=== PATIENT | male | born 1975 | race Caucasian/White ===

== ENCOUNTER → 2017-05-22 | Outpatient (REF) | payer OTHER, SELFPAY ==
[2017-05-22 11:10] LABS: MEAN CORPUSCULAR HGB CONC 34.7 g/dl (32.0-36.5); MEAN CORPUSCULAR VOLUME 86.4 fl (80.0-96.0); RED CELL DISTRIBUTION WIDTH 12.6 % (11.5-14.5); WHITE BLOOD COUNT 5.6 K/mm3 (4.0-10.0)
[2017-05-22 11:35] LABS: ALBUMIN 3.9 GM/DL (3.2-5.2); ALBUMIN/GLOBULIN RATIO 1.15 (1.00-1.93); ALKALINE PHOSPHATASE 78 U/L (45-117); ALT/SGPT 61 U/L (12-78); ANION GAP 8 MEQ/L (8-16); AST/SGOT 28 U/L (15-37); BILIRUBIN,TOTAL 0.6 MG/DL (0.2-1.0); BLOOD UREA NITROGEN 17 MG/DL (7-18); CALCIUM LEVEL 9.1 MG/DL (8.5-10.1); CARBON DIOXIDE LEVEL 28 MEQ/L (21-32); CHLORIDE LEVEL 106 MEQ/L (98-107); CREATININE FOR GFR 1.11 MG/DL (0.70-1.30); GLOMERULAR FILTRATION RATE > 60.0 (>60); GLUCOSE, FASTING 119 MG/DL (70-105); POTASSIUM SERUM 4.1 MEQ/L (3.5-5.1); SODIUM LEVEL 142 MEQ/L (136-145); TOTAL PROTEIN 7.3 GM/DL (6.4-8.2)
[2017-05-22 11:37] LABS: LITHIUM LEVEL 0.33 MEQ/L (0.60-1.20)
== END ==
LOC: M LAB REF 10:58
PROVIDERS: ATTEND Psychiatry & Neurology Psychiatry
DX: Z51.81 Encounter for therapeutic drug level monitoring (principal); Z79.899 Other long term (current) drug therapy

== ENCOUNTER 2020-05-05 20:27 | Inpatient (IN) | payer OTHER ==
[2020-05-05] MEDS ORDERED: KETOROLAC 30 MG/ML 1ML VIAL As Ordered ONE (21:59)
[2020-05-05] MEDS ORDERED: CLINDAMYCIN 600 MG/50 ML PREMIX BAG As Ordered ONE (21:59)
[2020-05-05] MEDS ORDERED: ISOVUE-370 76% 100ML VIAL As Ordered ONE (22:50)
[2020-05-06] MEDS ORDERED: ZOSYN 3.375GM VIAL (J2543) ONE ×3 (02:14→22:15)
[2020-05-06] MEDS ORDERED: ZOSYN 3.375GM VIAL (J2543) As Ordered ONE ×3 (02:14→22:15)
[2020-05-06] MEDS ORDERED: NORCO, ANEXSIA 5/325MG TABLET (HYDROcodone/ACETAMINOPHEN) As Ordered ONE (05:15)
[2020-05-06] MEDS ORDERED: NORCO, ANEXSIA 5/325MG TABLET (HYDROcodone/ACETAMINOPHEN) ONE (05:15)
[2020-05-06] MEDS ORDERED: KETOROLAC 30 MG/ML 1ML VIAL ONE ×3 (05:15→22:15)
[2020-05-06] MEDS ORDERED: KETOROLAC 30 MG/ML 1ML VIAL As Ordered ONE ×3 (07:47→22:15)
[2020-05-06] MEDS ORDERED: VANCOMYCIN 1000MG/20ML VIAL As Ordered ONE ×2 (10:02→17:17)
[2020-05-06] MEDS ORDERED: ACETAMINOPHEN TAB 650MG DOSE (2X325MG) ONE ×2 (10:02→17:17)
[2020-05-06] MEDS ORDERED: VANCOMYCIN 1000MG/20ML VIAL ONE ×2 (10:02→17:17)
[2020-05-06] MEDS ORDERED: ACETAMINOPHEN TAB 650MG DOSE (2X325MG) As Ordered ONE ×2 (10:17→17:17)
[2020-05-06] MEDS ORDERED: VANCOMYCIN 500MG/10ML VIAL As Ordered ONE (12:40)
[2020-05-06] MEDS ORDERED: VANCOMYCIN 500MG/10ML VIAL ONE (14:57)
[2020-05-07] MEDS ORDERED: VANCOMYCIN 1000MG/20ML VIAL As Ordered ONE ×3 (01:19→18:09)
[2020-05-07] MEDS ORDERED: KETOROLAC 30 MG/ML 1ML VIAL As Ordered ONE ×4 (01:19→21:00)
[2020-05-07] MEDS ORDERED: ACETAMINOPHEN 325 MG TAB As Ordered ONE ×2 (01:20→04:18)
[2020-05-07] MEDS ORDERED: ZOSYN 3.375GM VIAL (J2543) As Ordered ONE ×4 (04:16→21:00)
[2020-05-07] MEDS ORDERED: ACETAMINOPHEN TAB 650MG DOSE (2X325MG) As Ordered ONE ×3 (10:03→23:03)
[2020-05-07] MEDS ORDERED: NORCO, ANEXSIA 5/325MG TABLET (HYDROcodone/ACETAMINOPHEN) As Ordered ONE ×2 (11:38→21:03)
[2020-05-07] MEDS ORDERED: CHLORHEXIDINE GLUCONATE 0.12 % 15ML UDC (PERIDEX ORAL RINSE) As Ordered ONE ×2 (17:03→21:06)
[2020-05-08] MEDS ORDERED: KETOROLAC 30 MG/ML 1ML VIAL As Ordered ONE ×4 (02:09→20:31)
[2020-05-08] MEDS ORDERED: VANCOMYCIN 1000MG/20ML VIAL As Ordered ONE ×3 (02:09→17:53)
[2020-05-08] MEDS ORDERED: ZOSYN 3.375GM VIAL (J2543) As Ordered ONE ×4 (03:43→20:25)
[2020-05-08] MEDS ORDERED: ACETAMINOPHEN TAB 650MG DOSE (2X325MG) As Ordered ONE ×4 (03:54→22:11)
[2020-05-08] MEDS ORDERED: CHLORHEXIDINE GLUCONATE 0.12 % 15ML UDC (PERIDEX ORAL RINSE) As Ordered ONE ×3 (08:14→20:28)
[2020-05-09] MEDS ORDERED: ZOSYN 3.375GM VIAL (J2543) As Ordered ONE ×4 (03:36→20:18)
[2020-05-09] MEDS ORDERED: KETOROLAC 30 MG/ML 1ML VIAL As Ordered ONE ×4 (03:37→20:17)
[2020-05-09] MEDS ORDERED: VANCOMYCIN 1000MG/20ML VIAL As Ordered ONE ×3 (03:37→18:32)
[2020-05-09] MEDS ORDERED: ACETAMINOPHEN TAB 650MG DOSE (2X325MG) As Ordered ONE ×4 (04:51→21:16)
[2020-05-09] MEDS ORDERED: CHLORHEXIDINE GLUCONATE 0.12 % 15ML UDC (PERIDEX ORAL RINSE) As Ordered ONE ×4 (08:30→20:20)
[2020-05-10] MEDS ORDERED: KETOROLAC 30 MG/ML 1ML VIAL As Ordered ONE ×3 (01:46→13:21)
[2020-05-10] MEDS ORDERED: VANCOMYCIN 1000MG/20ML VIAL As Ordered ONE ×2 (01:47→10:50)
[2020-05-10] MEDS ORDERED: ACETAMINOPHEN TAB 650MG DOSE (2X325MG) As Ordered ONE ×2 (01:47→10:47)
[2020-05-10] MEDS ORDERED: ZOSYN 3.375GM VIAL (J2543) As Ordered ONE ×2 (01:47→08:05)
== END 2020-05-10 15:55 | disposition home or self-care (01) | DRG 720 ==
LOC: M ED 20:27 → M PCU 05-06 01:19
PROVIDERS: ADMIT Internal Medicine; ATTEND Internal Medicine
DX: A41.9 Sepsis, unspecified organism (principal); L03.211 Cellulitis of face; F11.10 Opioid abuse, uncomplicated; F17.200 Nicotine dependence, unspecified, uncomplicated

== ENCOUNTER → 2020-12-27 | Outpatient (REF) | payer OTHER | LOC: M LAB REF 11:44 | PROVIDERS: ATTEND Surgery | DX: U07.1 COVID-19 (principal) ==

== ENCOUNTER 2021-08-05 16:35 | Emergency (ER) | payer OTHER ==
[~2021-08-05] VITALS: Ht 175.3 cm; Wt 75.0 kg
[2021-08-05 16:56] VITALS: BP 119/80
--- OUTSIDE RECORDS SUMMARY | 2021-08-05 17:14 | CCD ---
Author Author [facility] Organization [facility] Address Unknown Phone Unavailable Care Team Providers Care Coding Specialist Home Health Name Role Phone Austyn Prince NP Unavailable Unavailable Austyn Prince NP Unavailable Unavailable Austyn Prince NP Unavailable Unavailable TorMikina Unavailable Re-disclosure Warning The records that you are about to access may contain information from federally-assisted alcohol or drug abuse programs. If such information is present, then the following federally mandated warning applies: This information has been disclosed to you from records protected by federal confidentiality rules (42 CFR part 2). The federal rules prohibit you from making any further disclosure of this information unless further disclosure is expressly permitted by the written consent of the person to whom it pertains or as otherwise permitted by 42 CFR part 2. A general authorization for the release of medical or other information is NOT sufficient for this purpose. The Federal rules restrict any use of the information to criminally investigate or prosecute any alcohol or drug abuse patient.The records that you are about to access may contain highly sensitive health information, the redisclosure of which is protected by Article 27-F of the [facility] Public Health law. If you continue you may have access to information: Regarding HIV / AIDS; Provided by facilities licensed or operated by the [facility] Office of Mental Health; or Provided by the [facility] Office for People With Developmental Disabilities. If such information is present, then the following [place] mandated warning applies: This information has been disclosed to you from confidential records which are protected by state law. State law prohibits you from making any further disclosure of this information without the specific written consent of the person to whom it pertains, or as otherwise permitted by law. Any unauthorized further disclosure in violation of state law may result in a fine or prison sentence or both. A general authorization for the release of medical or other information is NOT sufficient authorization for further disc losure. Family History Family Member Name Family Member Gender Family Member Status Date o f Status Description Data Source(s) Unknown Unknown Problem [facility] ([facility], ) Encounters Encounter Providers Location Date Indications Data Source(s ) Outpatient [address] [facility] Unit 01/07/2021 01:45:00 PM EDT - 05/25/2021 11:04:00 AM EDT [facility] ([facility] [place]) Patient discharged[facility]25/2020 09:00:00 AM EST - 11/25/2020 09:00:00 AM EST [facility] ([facility]) Attender: Nura Prince NP 11/25/2020 12:00:00 AM EST [facility] ([facility]) Brief Individual Psychotherapy - 30 min Att[facility]: [facility]errara [facility] 11/17/2020 09:00:00 AM EST - 11/17/2020 09:00:00 AM EST [facility] ([facility]) Attender: Olga Lentz 11/17/2020 12:00:[address] [facility] ([facility]) Telemed Diagnostic Eval Attender: Nura Prince NP [facility] 10/26/2020 08:00:00 AM EST - 10/26/2020 08:00:00 AM EST [facility] ([facility]) Attender: Nura Prince NP 10/26/2020 12:00:00 AM EST [facility] ([facility]) Brief Individual Psychotherapy - 20 min Att[facility]: [facility] 09/27/2020 12:40:00 PM EST - 09/27/2020 12:40:00 PM EST [facility] ([facility]) Attender: Olga Lentz 09/27/2020 12:00:[address] [facility] ([facility]) Functional Status Medications Medication Brand Name Start Date Product Form Dose Route Admi nistrative Instructions Pharmacy Instructions Status Indications Reaction Description Data Source(s) quetiapine 50 MG Oral Tablet quetiapine 10/26/2020 12:00:00 AM EST 50 mg by mouth completed <td ID="Medica tionRxNorm_2">[id number]</td><td ID="MedicationMedication_2">quetiapine</td><td ID="MedicationRoute_2">by mouth</td><td ID="MedicationRouteConcept_2">W83335</td><td ID="MedicationStartDate_2">10/26/2020</td><td ID="MedicationStopDate_2">04/24/2021</td><td ID="MedicationDosageFrequency_2">once a day</td><td ID="MedicationDuration_2">30</td><td ID="MedicationFormulaStrength_2">50 mg</td><td ID="MedicationDosageForm_2">tablet</td><td ID="MedicationDosageFormCode_2"></td><td ID="MedicationDosageDescription_2"></td><td ID="MedicationMedicationId_2">[id number]</td><td ID="MedicationAccount_2">[id number]</td><td ID="MedicationNpid_2">[id number]</td><td ID="MedicationAuthorFirstName_2">Nura</td><td ID="MedicationAuthorLastName_2">Prince</td><td ID="MedicationTaxonomyCode_2">[id number]</td><td ID="MedicationTaxonomyDesc_2">Nurse Practitioner</td><td ID="MedicationPhoneNumber_2">[phone]</td> [facility] ([facility]) quetiapine 50 MG Oral Tablet Quetiapine Fumarate 10/26/2020 12:00:00 AM EST ORAL active [facility] ([facility]) quetiapine 200 MG Oral Tablet quetiapine 10/26/2020 12:00:00 AM EST 200 mg by mouth completed <td ID="Medica tionRxNorm_1">[id number]</td><td ID="MedicationMedication_1">quetiapine</td><td ID="MedicationRoute_1">by mouth</td><td ID="MedicationRouteConcept_1">[id number]</td><td ID="MedicationStartDate_1">10/26/2020</td><td ID="MedicationStopDate_1">04/24/2021</td><td ID="MedicationDosageFrequency_1">at bedtime</td><td ID="MedicationDuration_1">30</td><td ID="MedicationFormulaStrength_1">200 mg</td><td ID="MedicationDosageForm_1">tablet</td><td ID="MedicationDosageFormCode_1"></td><td ID="MedicationDosageDescription_1"></td><td ID="MedicationMedicationId_1">[id number]</td><td ID="MedicationAccount_1">[id number]</td><td ID="MedicationNpid_1">[id number]</td><td ID="MedicationAuthorFirstName_1">Nura</td><td ID="MedicationAuthorLastName_1">Prince</td><td ID="MedicationTaxonomyCode_1">[id number]</td><td ID="MedicationTaxonomyDesc_1">Nurse Practitioner</td><td ID="MedicationPhoneNumber_1">[phone]</td> [facility] ([facility]) quetiapine 200 MG Oral Tablet Quetiapine Fumarate 10/26/2020 12:00: 00 AM EST ORAL active [facility] Insurance Providers Payer name Policy type / Coverage type Policy ID Covered green party ID Covered green party's relationship to solitario Policy Solitario Plan Information [facility] [id number] SP [facility] [id number] SELF PAY ONLY UNAVAILABLE SP UNA[place] AILABLE [place] [id number] S [id number] SAWYER [id number] SP [id number] [place] [id number] Self SAWYER UNK SP UNK MEDICAID [id number] SP [id number] MEDICAID [id number] S [id number] MEDICAID [id number] S [id number] MEDICAID W [id number] S [id number] MEDICAID [id number] SELFPAY 5 UNAVAILABLE 1 UNAVAILA BLE PCP TOTAL CARE O [id number] UNAVAILABLE UNAVAILA BLE Problems, Conditions, and Diagnoses Code Display Name Description Problem Type Effective Dates Data Source(s) F43.21 Adjustment disorder with depressed mood Adjustment disorders, With depressed mood Diagnosis 02/14/2021 12:00:00 AM EDT [facility] ([facility]) F10.20 Alcohol dependence, uncomplicated Alcohol use disorder , Severe Diagnosis 02/14/2021 12:00:00 AM EDT [facility] ([facility]) F12.20 Cannabis dependence, uncomplicated Cannabis use disorder, Severe Diagnosis 02/14/2021 12:00:00 AM EDT [facility] ([facility]) F15.20 Other stimulant dependence, uncomplicate d Amphetamine-type substance use disorder, Severe Diagnosis 02/14/2021 12:00:00 AM EDT [facility] ([facility]) F60.2 Antisocial personality disorder Antisoci al personality disorder (Personality Disorders) Diagnosis 01/07/2021 12:00:00 AM EDT [facility] (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 F11.20 Opioid dependence, uncomplicated Opioid use disorder, Severe Diagnosis 01/07/2021 12:00:00 AM EDT [facility] ([facility]) F43.22 Adjustment disorder with anxiety Adjustment diso rders, With anxiety Diagnosis 01/07/2021 12:00:00 AM EDT [facility] ([facility]) F15.20 Other stimulant dependence, uncomplicate d Stimulant Use Disorder, Moderate: Amphetamine-type substance Condition 11/25/2020 12:00:00 AM EST [facility] ([facility]) F31.62 Bipolar disorder, current episode mixed, moderate Bipolar disorder, current episode mixed, moderate Condition 11/25/2020 12:00:00 AM EST [facility] ([facility]) Surgeries/Procedures Procedure Description Date Indications Data Source(s) [facility] Telemed E/M Lvl 3--Est pt 11/25/2020 12:00:00 AM EST - 11/25/2020 12:00:00 AM EST [facility] ([facility]) [facility] Telemed E/M Lvl 3--Est pt 11/25/2020 12:00:[address] [facility] ([facility]) Brief Individual Psychotherapy - 30 min 11/17/2020 12:00:00 AM EST - 11/17/2020 12:00:00 AM EST [facility] ([facility]) Brief Individual Psychotherapy - 30 min 11/17/2020 12: 00:00 AM EST [facility] ([facility]) Telemed Diagnostic Eval 10/26/2020 12:00 :00 AM EST - 10/26/2020 12:00:00 AM EST [facility] ([facility]) Telemed Diagnostic Eval 10/26/2020 12:00:00 AM EST [facility] ([facility]) Brief Individual Psychotherapy - 20 min 09/27/2020 12:00:00 AM EST - 09/27/2020 12:00:00 AM EST [facility] ([facility]) Brief Individual Psychotherapy - 20 min 09/27/2020 12: 00:00 AM EST [facility] ([facility]) Results ID Date Data Source [id number] 12/27/2020 10:37:00 AM EDT [place] Name Value Range Interpretation Code Description Data Bernadette rce(s) Supporting Document(s) SARS coronavirus 2 RNA Not Detected [facility] This lab was ordered by [facility] and reported by [facility]. Procedure Social History Code Duration Value Status Description Data Source(s ) Smoking 11/25/2020 12:00:00 AM EST Unknown if ever smoked comp leted Unknown if ever smoked [facility] ([facility]) Smoking 11/17/2020 12:00:00 AM EST Unknown if ever smoked comp leted Unknown if ever smoked [facility] ([facility]) Smoking 10/26/2020 12:00:00 AM EST Unknown if ever smoked comp leted Unknown if ever smoked [facility] ([facility]) Smoking 09/27/2020 12:00:00 AM EST Unknown if ever smoked comp leted [facility] Vital Signs ID Date Data Source UNK Name Value Range Interpretation Code Description Data Source(s) Body height 0.00 in Normal (applies to non-numeric resu lts) 0.00 in [facility] ([facility]) Body weight Measured 0.00 lbs Normal (applies to n on-numeric results) 0.00 lbs [facility] ([facility]) Body mass index (BMI) [Ratio] 0.00 kg/m2 No rmal (applies to non-numeric results) 0.00 kg/m2 [facility] ([facility]) Systolic blood pressure 0 mm[Hg] Normal (applies t o non-numeric results) 0 mm[Hg] [facility] Diastolic blood pressure 0 mm[Hg] Normal (applies to non-numeric results) 0 mm[Hg] [facility] ([facility]) Body temperature 98.0 [degF] 98.0 [degF] [facility] ([facility]) Body height 0.00 in Normal (applies to non-numeric resu lts) 0.00 in [facility] ([facility]) Body weight Measured 0.00 lbs Normal (applies to n on-numeric results) 0.00 lbs [facility] ([facility]) Body mass index (BMI) [Ratio] 0.00 kg/m2 No rmal (applies to non-numeric results) 0.00 kg/m2 [facility] Systolic blood pressure 0 mm[Hg] Normal (applies t o non-numeric results) 0 mm[Hg] [facility] ([facility]) Diastolic blood pressure 0 mm[Hg] Normal (applies to non-numeric results) 0 mm[Hg] [facility] ([facility])
== END 2021-08-05 17:48 | disposition home or self-care (01) ==
LOC: EDBD 16:35 → M ED 16:35
DX: T40.1X1A Poisoning by heroin, accidental (unintentional), initial encounter (principal); F17.200 Nicotine dependence, unspecified, uncomplicated